=== PATIENT | male | born 1990 | race Caucasian/White ===

== ENCOUNTER 2018-03-20 14:21 | Emergency (ER) | payer OTHER ==
[~2018-03-20] VITALS: Ht 185.4 cm; Wt 81.7 kg
[2018-03-20 16:03] LABS: ABSOLUTE EOSINOPHILS 0.2 thou/uL (0.0-0.7); ABSOLUTE LYMPHOCYTES 2.2 thou/uL (0.8-5.3); ABSOLUTE MONOCYTES 0.5 thou/uL (0.0-1.2); ABSOLUTE NEUTROPHILS 4.6 thou/uL (1.6-8.1); BASOPHILS 0.4 %; EOSINOPHILS 3.2 %; HEMOGLOBIN 14.4 gm/dL (14.0-18.0); LYMPHOCYTES 28.9 %; MCHC 34.3 g/dL (28.0-37.0); MCV 90.4 fL (80.0-100.0); MONOCYTES 6.9 %; MPV 8.4 fl. (7.2-11.1); NUCLEATED RBCS 0 /100WBC; PLATELET COUNT* 234 thou/uL (150-400); POLYS 60.6 %; RBC 4.65 mil/uL (4.50-6.00); RDW-CV 13.8 % (10.5-14.5); WBC 7.5 thou/uL (4.0-11.0)
[2018-03-20 16:10] LABS: CALCIUM 8.5 mg/dL (8.5-10.1); CREATININE 0.7 mg/dL (0.6-1.3); POTASSIUM 3.7 mmol/L (3.5-5.1)
[2018-03-20 16:12] LABS: APTT 29.7 Seconds (25.0-31.3); INR 1.1; PROTIME 10.5 Seconds (9.20-11.50)
[2018-03-20 16:15] LABS: ALBUMIN 4.1 g/dL (3.4-5.0); TOTAL BILIRUBIN 0.4 mg/dL (<0.1-1.0); TOTAL PROTEIN 7.9 g/dL (6.4-8.2)
[2018-03-20] MEDS ORDERED: KEFLEX500 M1 PO (16:34)
[2018-03-20 16:49] VITALS: BP 113/62
== END 2018-03-20 16:51 | disposition home or self-care (01) ==
LOC: M.ERS 14:21
PROVIDERS: Nurse Practitioner Family
DX: S61.532A Puncture wound without foreign body of left wrist, initial encounter (principal); X58.XXXA Exposure to other specified factors, initial encounter; Y93.89 Activity, other specified; Y92.89 Other specified places as the place of occurrence of the external cause; Y99.8 Other external cause status; L03.116 Cellulitis of left lower limb; Z88.2 Allergy status to sulfonamides

== ENCOUNTER 2019-03-03 11:35 | Emergency (ER) | payer OTHER ==
[~2019-03-03] VITALS: Ht 188 cm; Wt 83.9 kg
[~2019-03-03 11:35] MED LIST: KEFLEX500 M1 PO
[2019-03-03] MEDS ORDERED: TUSSIONEX PENN115 ML PO (12:51)
[2019-03-03] MEDS ORDERED: AZITHROMYCIN 2250 MG PO (12:51)
[2019-03-03] MEDS ORDERED: PREDNISONE50 MG PO (12:52)
[2019-03-03] MEDS ORDERED: VENTOLIN HFA 1818 GM INH (12:52)
[2019-03-03 13:06] VITALS: BP 108/66
== END 2019-03-03 13:07 | disposition home or self-care (01) ==
LOC: M.ERS 11:35
DX: J40 Bronchitis, not specified as acute or chronic (principal); F17.210 Nicotine dependence, cigarettes, uncomplicated; Z88.2 Allergy status to sulfonamides

== ENCOUNTER 2019-03-13 17:44 | Emergency (ER) | payer OTHER ==
[~2019-03-13] VITALS: Ht 188 cm; Wt 81.7 kg
[~2019-03-13 17:44] MED LIST changes: +AZITHROMYCIN 2250 MG PO; +PREDNISONE50 MG PO; +TUSSIONEX PENN115 ML PO; +VENTOLIN HFA 1818 GM INH
[2019-03-13 18:58] LABS: ABSOLUTE EOSINOPHILS 0.1 thou/uL (0.0-0.7); ABSOLUTE LYMPHOCYTES 1.8 thou/uL (0.8-5.3); ABSOLUTE MONOCYTES 0.5 thou/uL (0.0-1.2); ABSOLUTE NEUTROPHILS 4.4 thou/uL (1.6-8.1); BASOPHILS 0.5 %; EOSINOPHILS 0.9 %; HEMATOCRIT 44.1 % (42.0-52.0); LYMPHOCYTES 26.2 %; MCH 31.7 pg (26.0-34.0); MCHC 34.1 g/dL (28.0-37.0); MONOCYTES 7.4 %; MPV 8.4 fl. (7.2-11.1); NUCLEATED RBCS 0 /100WBC; PLATELET COUNT* 212 thou/uL (150-400); RBC 4.74 mil/uL (4.50-6.00); RDW-CV 13.8 % (10.5-14.5); WBC 6.8 thou/uL (4.0-11.0)
[2019-03-13 19:02] LABS: ANION GAP 15 mmol/L (7-16); BUN 11 mg/dL (7-18); CHLORIDE 103 mmol/L (98-107); CO2 24 mmol/L (21-32); CREATININE 0.9 mg/dL (0.6-1.3); GLUCOSE 154 mg/dL (70-99); POTASSIUM 3.6 mmol/L (3.5-5.1); SODIUM 142 mmol/L (136-145)
[2019-03-13 19:13] LABS: ALKALINE PHOSPHATASE 72 U/L (46-116); NT-PRO BRAIN NAT PEPTIDE 30 pg/mL (<300); SGOT 108 U/L (15-37); SGPT 86 U/L (30-65); TOTAL BILIRUBIN 0.4 mg/dL (<0.1-1.0); TOTAL PROTEIN 7.7 g/dL (6.4-8.2); TROPONIN-I LEVEL <0.06 ng/mL (<0.06)
[2019-03-13] MEDS ORDERED: NABUMETONE 750750 M1 PO (19:44)
[2019-03-13] MEDS ORDERED: PREDNISONE 10 M10 MG PO (19:57)
[2019-03-13] MEDS ORDERED: VENTOLIN HFA 1818 GM INH (19:57)
[2019-03-13] MEDS ORDERED: DOXYCYCLINE 10100 MG PO (19:57)
[2019-03-13 20:27] VITALS: BP 124/67
--- NOTE | 2019-03-14 17:36 | EKG ---
[place] [address] ELECTROCARDIOGRAM REPORT Name: IFEANYINICHOLE Haroon Room: [facility]#: [id number] Admission: 03/13/19 Attend Phys: Discharge: 03/13/19 Date of : [birth year] Report #: [id number] THIS REPORT FOR: //name// [facility] ED Test Date: 2019-03-13 Test Time: 18:46:33 Pat Name: NICHOLE SUGGS Department: Room: Gender: M Professional Driver: : 1990 Requested By: Any Riggins Order Number: [id number] MD: Noe Guo Measurements Intervals [place] Rate: 87 P: 29 UT: 143 QRS: 60 QRSD: 115 T: 42 QT: 355 QTc: 427 Interpretive Statements Sinus rhythm Incomplete right bundle branch block No previous ECG available for comparison Electronically Signed On 03-14-2019 17:36:30 CDT by Noe Guo [email or web address] <ELECTRONICALLY SIGNED> By: Noe Guo MD, [facility] 03/14/19 1736 1846 1846 Noe Guo MD, FACC /EPI
== END 2019-03-13 20:30 | disposition home or self-care (01) ==
LOC: M.ERS 17:44
PROVIDERS: Nurse Practitioner Family
DX: I45.19 Other right bundle-branch block (principal); J20.9 Acute bronchitis, unspecified; F17.210 Nicotine dependence, cigarettes, uncomplicated; Z88.2 Allergy status to sulfonamides

== ENCOUNTER 2019-09-14 11:53 | Emergency (ER) | payer OTHER ==
[~2019-09-14] VITALS: Ht 188 cm; Wt 88.0 kg
[~2019-09-14 11:53] MED LIST changes: +DOXYCYCLINE 10100 MG PO; +NABUMETONE 750750 M1 PO; +PREDNISONE 10 M10 MG PO
[2019-09-14 12:00] VITALS: BP 149/94
[2019-09-14] MEDS ORDERED: PROTONIX40 M4 PO (12:02)
[2019-09-14] MEDS ORDERED: TESSALON PERLE100 M1 PO (12:15)
== END 2019-09-14 12:44 | disposition home or self-care (01) ==
LOC: M.ERS 11:53
DX: J00 Acute nasopharyngitis [common cold] (principal); K21.9 Gastro-esophageal reflux disease without esophagitis; F17.210 Nicotine dependence, cigarettes, uncomplicated; Z88.2 Allergy status to sulfonamides

== ENCOUNTER 2019-11-29 00:10 | Inpatient (IN) | payer OTHER ==
[2019-11-29] VITALS (21 sets, daily range): BP systolic 117–147; BP diastolic 68–93
[~2019-11-29] VITALS: Ht 185.4 cm; Wt 82.6 kg
[~2019-11-29 00:10] MED LIST changes: +PROTONIX40 M4 PO; +TESSALON PERLE100 M1 PO
[2019-11-29 01:21] LABS: URINE BILIRUBIN NEGATIVE (Negative); URINE BLOOD TRACE (Negative); URINE CLARITY CLEAR; URINE COLOR YELLOW; URINE GLUCOSE-RANDOM 3+ (Negative); URINE LEUKOCYTES-REFLEX NEGATIVE (Negative); URINE NITRITE-REFLEX NEGATIVE (Negative); URINE PROTEIN NEGATIVE (Negative); URINE SPECIFIC GRAVITY 1.015 (1.005-1.030); URINE UROBILINOGEN 0.2 E.U./dl (0.2-1.0)
[2019-11-29 01:24] LABS: URINE KETONES 3+ (Negative)
[2019-11-29 01:36] LABS: ABSOLUTE LYMPHOCYTES 0.8 thou/uL (0.8-5.3); ABSOLUTE MONOCYTES 0.8 thou/uL (0.0-1.2); ABSOLUTE NEUTROPHILS 6.7 thou/uL (1.6-8.1); BASOPHILS 0.3 %; EOSINOPHILS 0.3 %; HEMATOCRIT 39.2 % (42.0-52.0); HEMOGLOBIN 13.6 gm/dL (14.0-18.0); MCH 32.1 pg (26.0-34.0); MCHC 34.7 g/dL (28.0-37.0); MCV 92.4 fL (80.0-100.0); MONOCYTES 9.3 %; MPV 9.2 fl. (7.2-11.1); NUCLEATED RBCS 0 /100WBC; PLATELET COUNT* 173 thou/uL (150-400); POLYS 80.1 %; RBC 4.24 mil/uL (4.50-6.00); RDW-CV 13.1 % (10.5-14.5); WBC 8.3 thou/uL (4.0-11.0)
[2019-11-29 01:45] LABS: CALCIUM 9.6 mg/dL (8.5-10.1); POTASSIUM 3.9 mmol/L (3.5-5.1)
[2019-11-29 01:49] LABS: TOTAL BILIRUBIN 0.8 mg/dL (<0.1-1.0); TOTAL PROTEIN 8.4 g/dL (6.4-8.2)
[2019-11-29 02:29] LABS: BE -12.4 mmol/L (-2 to +3); PCO2 27.9 mmHg (35.0-45.0); PO2 89.7 mmHg (75.0-100.0)
[2019-11-29 02:32] LABS: pH 7.279 (7.340-7.450)
[2019-11-29 05:51] LABS: ALBUMIN 3.8 g/dL (3.4-5.0); CALCIUM 9.1 mg/dL (8.5-10.1); CREATININE 0.9 mg/dL (0.6-1.3); MAGNESIUM 1.8 mg/dL (1.8-2.4); PHOSPHORUS* 1.8 mg/dL (2.5-4.9); POTASSIUM 3.4 mmol/L (3.5-5.1)
--- NOTE | 2019-11-29 07:31 | NUR ---
ASSESSMENTS CHARTED BY MARKIE SILVA. PRECEPTOR, I VALIDATE THAT ALL CHARTING AND EDITS DONE BY MARKIE SILVA ARE TRUTHFUL AND ACCURATE TO THE BEST OF MY KNOWLEDGE. PATIENT ARRIVED ON UNIT FROM ED AT 0415. INSULIN GTT STARTED AT 7 UNITS/HR, TITRATED DOWN TO 3 UNITS/HR. FLUIDS INFUSING PER DKA PROTOCOL. PATIENT SLEPT FOR THE MAJORITY OF THE DURATION WHILE ON THE UNIT THIS SHIFT. POTASSIUM REPLACEMENT INFUSING PER PROTOCOL. NO SIGNIFICANT EVENTS THIS SHIFT. MAYDA
--- NOTE | 2019-11-29 10:25 | NUR ---
ICU rounds: Pt lives at home with significant other and child. Pt family visiting with pt. Pt nurse reported pt is new diabetic. SW to provide rx assistance resources. Pt has option to follow with Dr Sebastian and to call [phone] to schedule appt. SW to continue to follow to assist with safe dc planning.
[2019-11-29 10:28] LABS: ALBUMIN 3.7 g/dL (3.4-5.0); CREATININE 0.8 mg/dL (0.6-1.3); MAGNESIUM 1.8 mg/dL (1.8-2.4); PHOSPHORUS* 1.6 mg/dL (2.5-4.9); POTASSIUM 3.8 mmol/L (3.5-5.1)
--- NOTE | 2019-11-29 10:36 | NUR ---
Nutrition: Per ICU rounds, pt newly diagnosed DM. On DKA protocol. Drinks >1 pint per day of ETOH. RD available to educate on DM diet once pt out of ICU and off CIWA. Will f/u 12/03/19.
[2019-11-29 13:46] LABS: ALBUMIN 3.5 g/dL (3.4-5.0); CALCIUM 8.8 mg/dL (8.5-10.1); CREATININE 0.8 mg/dL (0.6-1.3); MAGNESIUM 1.7 mg/dL (1.8-2.4); PHOSPHORUS* 2.4 mg/dL (2.5-4.9); POTASSIUM 4.4 mmol/L (3.5-5.1)
[2019-11-29 18:19] LABS: ALBUMIN 3.3 g/dL (3.4-5.0); CALCIUM 8.6 mg/dL (8.5-10.1); CREATININE 0.7 mg/dL (0.6-1.3); PHOSPHORUS* 2.3 mg/dL (2.5-4.9)
[2019-11-29 18:26] LABS: POTASSIUM 3.3 mmol/L (3.5-5.1)
[2019-11-29 21:24] LABS: ALBUMIN 3.1 g/dL (3.4-5.0); CALCIUM 8.3 mg/dL (8.5-10.1); CREATININE 0.7 mg/dL (0.6-1.3); MAGNESIUM 1.5 mg/dL (1.8-2.4); PHOSPHORUS* 1.9 mg/dL (2.5-4.9); POTASSIUM 3.5 mmol/L (3.5-5.1)
[2019-11-29 23:10] LABS: GLYCOHEMOGLOBIN (HGB A1C) 12.2 % (4.8-5.6)
[2019-11-30] VITALS (12 sets, daily range): BP systolic 103–128; BP diastolic 62–79
[2019-11-30 01:27] LABS: ALBUMIN 3.2 g/dL (3.4-5.0); CALCIUM 8.5 mg/dL (8.5-10.1); CREATININE 0.8 mg/dL (0.6-1.3); MAGNESIUM 1.6 mg/dL (1.8-2.4); PHOSPHORUS* 2.7 mg/dL (2.5-4.9); POTASSIUM 3.5 mmol/L (3.5-5.1)
--- NOTE | 2019-11-30 07:02 | NUR ---
ASSESSMENTS CHARTED. ANION GAP CLOSED, BICARB WNL. INSULIN GTT STILL RUNNING AT 1.5 UNITS/HR. FLUIDS INFUSING PER DKA PROTOCOL, ELECTROLYTE REPLACEMENT IN PLACE. PATIENT STILL C/O RECTAL PAIN, OBTAINED ORDERS FOR STOOL SOFTENERS TO COUNTERACT CHRONIC CONSTIPATION COMPOUNDED ON SIDE EFFECTS FROM NARCOTICS. PATIENT RESTED IN BED FOR THE DURATION OF THE SHIFT.
[2019-11-30 09:11] LABS: CALCIUM 7.9 mg/dL (8.5-10.1); CREATININE 0.6 mg/dL (0.6-1.3); PHOSPHORUS* 2.5 mg/dL (2.5-4.9); POTASSIUM 3.5 mmol/L (3.5-5.1)
[2019-12-01 00:24] VITALS: BP 129/81
[2019-12-01 04:23] VITALS: BP 112/67
[2019-12-01 04:44] LABS: HEMOGLOBIN 11.9 gm/dL (14.0-18.0); MCH 32.4 pg (26.0-34.0); MCV 92.5 fL (80.0-100.0); MPV 9.3 fl. (7.2-11.1); RBC 3.68 mil/uL (4.50-6.00); RDW-CV 13.1 % (10.5-14.5); WBC 3.8 thou/uL (4.0-11.0)
[2019-12-01 05:27] LABS: CALCIUM 8.5 mg/dL (8.5-10.1); CREATININE 0.6 mg/dL (0.6-1.3); MAGNESIUM 1.7 mg/dL (1.8-2.4); POTASSIUM 3.1 mmol/L (3.5-5.1)
--- NOTE | 2019-12-01 05:28 | NUR ---
PT A+O X4. SETUP FOR SHOWER LAST NIGHT. ABLE TO AMBULATE IN HALLWAY WITH STEADY GAIT. PT GIVEN PRN NORCO FOR HEMMORHOID PAIN. PT GIVEN INSULIN WITH LATE NIGHT SNACK. CALL LIGHT IN REACH. HOURLY ROUNDING FOR SAFETY.
[2019-12-01 07:57] VITALS: BP 107/50
[2019-12-01 12:00] VITALS: BP 118/80
--- NOTE | 2019-12-01 15:31 | NUR ---
ASSUMED CARE OF PT AROUND 0730 THIS AM. REFER TO ASSESSMENT. PT REPORTS HAVING A BOWEL MOVEMENT THIS SHIFT. REPORTS LISS RED BLOOD FROM HEMORRHOIDS. INSTRUCTED IMPORTANCE OF KEEPING RECTAL AREA CLEAN. PT GIVEN DIABETES EDUCATION BY THIS RN WITH SELF ADMINISTRATION OF INSULIN DEMONSTRATED WITH UNDERSTANDING REPORTED BY PATIENT. NO OTHER CONCERNS AT THIS TIME. CLWR. WCTM.
[2019-12-01 16:00] VITALS: BP 121/83; BP 89/43
[2019-12-01 20:00] VITALS: BP 128/83
[2019-12-02 00:53] VITALS: BP 138/91
[2019-12-02 04:46] VITALS: BP 121/85
[2019-12-02 07:00] VITALS: BP 145/76
[2019-12-02 09:38] VITALS: BP 145/76
[2019-12-02] MEDS ORDERED: INSULIN LI100 UNIT/1 SUBQ (10:02)
[2019-12-02] MEDS ORDERED: HUMALOG MI100 UNIT/6 SUBQ (10:09)
[2019-12-02] MEDS ORDERED: COLACE100 MG PO (10:39)
[2019-12-02] MEDS ORDERED: MIRALAX17 GM PO (10:41)
[2019-12-02] MEDS ORDERED: ANUSOL-HC30 GM TOP (10:44)
--- NOTE | 2019-12-02 10:58 | NUR ---
INITAL ASSESSMENT COMPLETED CHARTED. VSS. TRACING SR ON MONITOR. PT JUSTA PAIN, SOA, N/V/D. NO NEW CONCERNS AT THIS TIME. HOURLY ROUNDING IN PLACE FOR PT SAFETY. CLWR.
[2019-12-02] MEDS ORDERED: HUMULIN R100 UNIT/1 SUBQ (11:09)
[2019-12-02] MEDS ORDERED: HUMULIN N100 UNIT/1 SUBQ (11:09)
[2019-12-02 11:22] VITALS: BP 145/76
--- NOTE | 2019-12-02 11:28 | NUR ---
PT TO BE DISCHARGED TODAY. PT HAS GLUCOMETER AND LANCETS AND KNOWS HOW TO CHECK HIS BLOOD SUGAR. RX CALLED IN FOR STRIPS AND NEEDLES TO [facility] PER PT'S REQUEST. PT PLANS TO BUY NPH AND REGULAR INSULIN OTC AT [facility]. PT STATES MILD UNDERSTANDING OF DIABETIC DIET FOR TYPE 1 DIABETES. PT HAS RESOURCES PROVIDED BY NURSING STAFF. PT PLANS TO F/U WITH DR GOEL IN HIS CLINIC UPON DC. ADDRESS AND PHONE NUMBER PROVIDED
--- NOTE | 2019-12-02 11:54 | NUR ---
Nutrition: Foolow up note. Pt to discharge today. Per KAROL Hutchinson, pt has been educated on DM now; no need for RD to see today.
--- NOTE | 2019-12-04 13:55 | EKG ---
[place] [address] ELECTROCARDIOGRAM REPORT Name: NICHOLE SUGGS Room: [address] IN [facility].#: [id number] Admission: 11/29/19 Attend Phys: Dhiraj Sebastian Discharge: 12/02/19 Date of : [birth year] Date of Service: 11/29/19 0246 Report #: [id number] THIS REPORT FOR: cc: LEONARDO - Brinda family physician/PCP LEONARDO - No family physician/PCP Surinder Umanzor MD [facility] THIS REPORT FOR: //name// [facility] ED Test Date: 2019-11-29 Test Time: 02:46:58 Pat Name: NICHOLE SUGGS Department: Room: [facility] Gender: M [place] Erector Helper: : 1990 Requested By: Maki Arana Order Number: [id number] : Surinder Umanzor Measurements Intervals [place] Rate: 77 P: 13 GA: 144 QRS: 62 QRSD: 112 T: 45 QT: 383 QTc: 434 Interpretive Statements Sinus rhythm Probable left atrial enlargement Incomplete right bundle branch block Compared to ECG 03/13/2019 18:46:33 no change Electronically Signed On 11-29-2019 10:45:05 HOSPICE EDUCATOR by Surinder Umanzor [email or web address] <ELECTRONICALLY SIGNED> By: Surinder Umanzor MD, [facility] 11/29/19 1045 0246 Surinder Umanzor MD, [facility] /EPI
== END 2019-12-02 12:10 | disposition home or self-care (01) | DRG 639 ==
LOC: M.ERS 00:10 → M.ICU 02:53 → M.TBA-ER 02:53 → M.2W 02:53 → M.ICU 03:46 → M.2W 11-30 20:05
PROVIDERS: Internal Medicine; Personal Emergency Response Attendant; ADMIT Internal Medicine
DX: E11.10 Type 2 diabetes mellitus with ketoacidosis without coma (principal); K21.9 Gastro-esophageal reflux disease without esophagitis; F10.10 Alcohol abuse, uncomplicated; Y90.9 Presence of alcohol in blood, level not specified; K64.4 Residual hemorrhoidal skin tags; E53.8 Deficiency of other specified B group vitamins; E83.39 Other disorders of phosphorus metabolism; Z88.2 Allergy status to sulfonamides

== ENCOUNTER 2020-08-24 18:46 | Inpatient (IN) | payer OTHER ==
[~2020-08-24] VITALS: Ht 188 cm; Wt 77.1 kg
[~2020-08-24 18:46] MED LIST changes: +ANUSOL-HC30 GM TOP; +COLACE100 MG PO; +HUMALOG MI100 UNIT/6 SUBQ; +HUMULIN N100 UNIT/1 SUBQ; +HUMULIN R100 UNIT/1 SUBQ; +INSULIN LI100 UNIT/1 SUBQ; +MIRALAX17 GM PO
[2020-08-24 18:56] VITALS: BP 120/71
[2020-08-24 20:36] LABS: BE -0.9 mmol/L (-2 to +3); PCO2 VENOUS 42.7 mmHg (41.0-51.0); PO2 VENOUS 108.4 mmHg (35.0-45.0)
[2020-08-24 20:37] LABS: ABSOLUTE EOSINOPHILS 0.1 thou/uL (0.0-0.7); ABSOLUTE LYMPHOCYTES 1.5 thou/uL (0.8-5.3); ABSOLUTE MONOCYTES 0.4 thou/uL (0.0-1.2); ABSOLUTE NEUTROPHILS 4.5 thou/uL (1.6-8.1); BASOPHILS 0.5 %; EOSINOPHILS 1.4 %; HEMATOCRIT 42.1 % (42.0-52.0); HEMOGLOBIN 13.8 gm/dL (14.0-18.0); LYMPHOCYTES 23.5 %; MCH 29.7 pg (26.0-34.0); MCHC 32.9 g/dL (28.0-37.0); MCV 90.3 fL (80.0-100.0); MONOCYTES 6.3 %; MPV 10.5 fl. (7.2-11.1); NUCLEATED RBCS 0 /100WBC; PLATELET COUNT* 173 thou/uL (150-400); POLYS 68.3 %; RBC 4.66 mil/uL (4.50-6.00); RDW-CV 12.9 % (10.5-14.5); WBC 6.6 thou/uL (4.0-11.0)
[2020-08-24 20:46] LABS: CALCIUM 8.7 mg/dL (8.5-10.1); CREATININE 1.5 mg/dL (0.6-1.3); POTASSIUM 4.8 mmol/L (3.5-5.1)
[2020-08-24 20:47] LABS: ALBUMIN 3.9 g/dL (3.4-5.0); MAGNESIUM 1.7 mg/dL (1.8-2.4); TOTAL BILIRUBIN 0.7 mg/dL (<0.1-1.0); TOTAL PROTEIN 7.3 g/dL (6.4-8.2)
[2020-08-24 21:06] LABS: URINE BILIRUBIN NEGATIVE (Negative); URINE BLOOD NEGATIVE (Negative); URINE CLARITY CLEAR; URINE COLOR YELLOW; URINE GLUCOSE-RANDOM 3+ (Negative); URINE KETONES NEGATIVE (Negative); URINE LEUKOCYTES-REFLEX NEGATIVE (Negative); URINE NITRITE-REFLEX NEGATIVE (Negative); URINE PROTEIN NEGATIVE (Negative); URINE UROBILINOGEN 0.2 E.U./dl (0.2-1.0)
[2020-08-25 02:23] VITALS: BP 100/60
--- NOTE | 2020-08-25 03:30 | NUR ---
SANDWICH AND SNACK GIVEN TO PT
[2020-08-25 07:53] VITALS: BP 104/43
[2020-08-25 09:27] LABS: CALCIUM 9.2 mg/dL (8.5-10.1); CREATININE 1.1 mg/dL (0.6-1.3)
[2020-08-25 09:31] LABS: MAGNESIUM 1.9 mg/dL (1.8-2.4); PHOSPHORUS* 3.6 mg/dL (2.5-4.9)
--- NOTE | 2020-08-25 09:36 | EKG ---
[place] [address] ELECTROCARDIOGRAM REPORT Name: NICHOLE SUGGS Room: [place] [address] ADM IN [facility]#: [id number] Admission: 08/24/20 Attend Phys: Javan Lindsey Discharge: Date of : [birth year] Date of Service: 08/24/201910 Report #: [id number] THIS REPORT FOR: //name// [facility] ED Test Date: 2020-08-24 Test Time: 19:11:06 Pat Name: NICHOLE SUGGS Department: Room: [facility] Gender: M Endoscopy Technician: KAMLA : 1990 Requested By: Maged Romano Order Number: [id number] MD: Noe Guo Measurements Intervals [place] Rate: 68 P: 61 VA: 141 QRS: 82 QRSD: 107 T: 65 QT: 392 QTc: 417 Interpretive Statements Sinus rhythm Incomplete right bundle branch block ST elev, probable normal early repol pattern Compared to ECG 11/29/2019 02:46:58 ST (T wave) deviation now present Electronically Signed On 08-25-2020 9:36:07 STUDENT SERVICES DIRECTOR by Noe Guo [email or web address] <ELECTRONICALLY SIGNED> By: Noe Guo MD, FACC 08/25/20935 10 10 Noe Guo MD, FACC /EPI
[2020-08-25 09:55] VITALS: BP 104/43
[2020-08-25 10:05] VITALS: BP 108/56
--- NOTE | 2020-08-25 11:00 | NUR ---
PT ADMITTED TO ROOM 208 FROM ED WITH HYPERGLYCEMIA. AOX4. VSS ON RA.FLUIDS INFUSING. PT REPORTS THAT HE BELIEVES HE MAY BENEFIT FROM INSULIN PUMP AND HAS RESEARCHED IT HOWEVER INSURANCE DOES NOT COVER IT.PT EDUCATED TO ROOM,PLAN OF CARE AND TREATMENT. SR ON MONITOR. NOTHING FURTHER. CLWR.WCTM
--- NOTE | 2020-08-25 11:50 | NUR ---
cm attempted to completed initial assessment; however, pt was out of her room.
--- NOTE | 2020-08-25 13:49 | NUR ---
CM COMPLETED INITIAL ASSESSMENT TO DISCUSS D/C PLANNING. LIVES AT HOME W/HIS S/O AND HER CHILDREN. PT IS A&O. ACTIVE. INDEPENDENT W/ADLS. PT USES A GLUCOSE SOLE CEMENTER AT HOME. PT HAS NO OTHER DMES. PT DENIES HX W/SNF OR HH. PT GOAL IS TO RTRN HOME AT D/C. CM TO CONT TO FOLLOW.
[2020-08-25 14:51] LABS: CALCIUM 9.2 mg/dL (8.5-10.1); MAGNESIUM 1.7 mg/dL (1.8-2.4)
[2020-08-25 16:00] VITALS: BP 101/63
[2020-08-25 21:00] VITALS: BP 98/48
[2020-08-26] VITALS (7 sets, daily range): BP systolic 93–101; BP diastolic 45–55
--- NOTE | 2020-08-26 05:21 | NUR ---
No acute event this shift. Pt complains of mild headache and nausea. PRN meds given per mar with relief. Pt Blood sugar checked. Pt sinus yared on tele. AOX4, up ad javier. Call light within reach, will continue POC.
[2020-08-26] MEDS ORDERED: HUMULIN R100 UNIT/1 SUBQ (09:02)
[2020-08-26] MEDS ORDERED: HUMULIN N100 UNIT/1 SUBQ (09:02)
--- NOTE | 2020-08-26 10:26 | NUR ---
Pt discharging to home today. Per Pt, he has been using the sliding scale prescribed from a previous hospital stay to manage his diabetes, Pt gets his insulin at [facility]. Pt does not have a pcp, CM provided Pt with contact info for the [facility] in [place], [place] [phone]
== END 2020-08-26 12:05 | disposition home or self-care (01) | DRG 639 ==
LOC: M.ERS 18:46 → M.TBA-ER 21:51 → M.2W 08-25 10:05
PROVIDERS: Emergency Medicine Emergency Medical Services; Internal Medicine; ADMIT Internal Medicine; ATTEND Internal Medicine
DX: E10.65 Type 1 diabetes mellitus with hyperglycemia (principal); E86.9 Volume depletion, unspecified; K21.9 Gastro-esophageal reflux disease without esophagitis; F17.210 Nicotine dependence, cigarettes, uncomplicated; Z20.828 Contact with and (suspected) exposure to other viral communicable diseases; Z79.4 Long term (current) use of insulin; Z79.899 Other long term (current) drug therapy; Z88.2 Allergy status to sulfonamides; Z23 Encounter for immunization

== ENCOUNTER 2020-09-19 18:23 | Emergency (ER) | payer OTHER ==
[~2020-09-19] VITALS: Ht 188 cm; Wt 77.1 kg
[2020-09-19] MEDS ORDERED: DICLOFENAC SODI75 MG PO (19:00)
[2020-09-19] MEDS ORDERED: NORCO 5-325 TA1 EAC2 PO (19:01)
[2020-09-19 19:56] VITALS: BP 123/67
== END 2020-09-19 19:58 | disposition home or self-care (01) ==
LOC: M.ERS 18:23
DX: S92.351A Displaced fracture of fifth metatarsal bone, right foot, initial encounter for closed fracture (principal); Z20.828 Contact with and (suspected) exposure to other viral communicable diseases; E13.9 Other specified diabetes mellitus without complications; F17.210 Nicotine dependence, cigarettes, uncomplicated; Z79.4 Long term (current) use of insulin; Z88.2 Allergy status to sulfonamides; W01.0XXA Fall on same level from slipping, tripping and stumbling without subsequent striking against object, initial encounter; Y93.89 Activity, other specified; Y92.89 Other specified places as the place of occurrence of the external cause; Y99.8 Other external cause status

== ENCOUNTER 2021-03-30 17:20 | Emergency (ER) | payer OTHER ==
[~2021-03-30] VITALS: Ht 188 cm; Wt 68.0 kg
[~2021-03-30 17:20] MED LIST changes: +DICLOFENAC SODI75 MG PO; +NORCO 5-325 TA1 EAC2 PO
[2021-03-30] MEDS ORDERED: LEVEMIR FL100 UNIT/2 SUBQ (17:34)
[2021-03-30] MEDS ORDERED: FIASP 100100 UNIT/1 SUBQ (17:34)
[2021-03-30 17:54] LABS: ABSOLUTE LYMPHOCYTES 1.8 thou/uL (0.8-5.3); ABSOLUTE MONOCYTES 0.4 thou/uL (0.0-1.2); ABSOLUTE NEUTROPHILS 3.8 thou/uL (1.6-8.1); BASOPHILS 0.4 %; BE -0.2 mmol/L (-2 to +3); EOSINOPHILS 0.6 %; HEMATOCRIT 37.4 % (42.0-52.0); HEMOGLOBIN 12.9 gm/dL (14.0-18.0); LYMPHOCYTES 30.2 %; MCH 29.6 pg (26.0-34.0); MCHC 34.5 g/dL (28.0-37.0); MCV 85.9 fL (80.0-100.0); MONOCYTES 6.6 %; MPV 9.3 fl. (7.2-11.1); NUCLEATED RBCS 0 /100WBC; PCO2 VENOUS 44.4 mmHg (41.0-51.0); PLATELET COUNT* 186 thou/uL (150-400); PO2 VENOUS 50.5 mmHg (35.0-45.0); POLYS 62.2 %; RBC 4.36 mil/uL (4.50-6.00); WBC 6.1 thou/uL (4.0-11.0)
[2021-03-30 18:00] LABS: CALCIUM 9.2 mg/dL (8.5-10.1); CREATININE 0.8 mg/dL (0.6-1.3); POTASSIUM 4.1 mmol/L (3.5-5.1)
[2021-03-30 18:04] LABS: ALBUMIN 4.4 g/dL (3.4-5.0); TOTAL BILIRUBIN 0.4 mg/dL (<0.1-1.0); TOTAL PROTEIN 7.6 g/dL (6.4-8.2)
[2021-03-30 18:27] VITALS: BP 105/64
== END 2021-03-30 18:28 | disposition home or self-care (01) ==
LOC: M.ERS 17:20
PROVIDERS: Family Medicine
DX: E10.65 Type 1 diabetes mellitus with hyperglycemia (principal); K21.9 Gastro-esophageal reflux disease without esophagitis; F17.210 Nicotine dependence, cigarettes, uncomplicated; Z79.4 Long term (current) use of insulin; Z88.2 Allergy status to sulfonamides